=== PATIENT | male | born 1945 ===

== ENCOUNTER 2022-09-11 07:19 | Day surgery (SDC) | payer MEDICARE ==
[~2022-09-11] VITALS: Ht 170.2 cm; Wt 75.2 kg
[2022-09-11] MEDS ORDERED: Amlodipine Bes2.5 MG (07:47)
[2022-09-11 09:32] VITALS: BP 103/76
--- NOTE | 2022-09-11 09:33 | NUR ---
09/11/22 0933 Joie Reece IV DC'D CATH INTACT, COBAN/GAUZE APPLIED, PT TOLERATED WELL.
== END 2022-09-11 09:33 | disposition home or self-care (01) ==
LOC: ORSCSDS 07:19
PROVIDERS: Student in an Organized Health Care Education/Training Program
PROC: 0DBN8ZX Excision of Sigmoid Colon, Via Natural or Artificial Opening Endoscopic, Diagnostic (ICD-10-PCS; principal; 2022-09-11 08:45)
PROC: 0DBM8ZX Excision of Descending Colon, Via Natural or Artificial Opening Endoscopic, Diagnostic (ICD-10-PCS; principal; 2022-09-11 08:45)
PROC: 0DBK8ZX Excision of Ascending Colon, Via Natural or Artificial Opening Endoscopic, Diagnostic (ICD-10-PCS; principal; 2022-09-11 08:45)
DX: Z12.11 Encounter for screening for malignant neoplasm of colon (principal); D12.2 Benign neoplasm of ascending colon; D12.4 Benign neoplasm of descending colon; K63.5 Polyp of colon; K57.30 Diverticulosis of large intestine without perforation or abscess without bleeding; K64.8 Other hemorrhoids; Z86.010 Personal history of colon polyps; K21.9 Gastro-esophageal reflux disease without esophagitis; I10 Essential (primary) hypertension
CPT/HCPCS: 88305; J2704; J7120